=== PATIENT | male | born 1955 | race Caucasian/White ===

== ENCOUNTER 2016-10-22 13:32 | Emergency (ER) | payer MEDICARE ==
[2016-10-22] MEDS ORDERED: Tuberculin 5 TU/0.1 mL UD ID ONE (13:45)
[2016-10-22 13:58] VITALS: BP 84/56
--- NOTE | 2016-10-22 14:23 | ED Physician Chart ---
Chief Complaint/HPI - Patient Information Date Seen:: 10/22/16 Time Seen:: 14:00 Chief Complaint:: CHF History of Present Illness:: THIS IS A CHRONICALLY CHF 60 YO HYPERTENSIVE DIABETIC CARDIAC OBESE MALE WITH CONCERN ABOUT THE RETENTION OF FLUID IN HIS LEGS AND SCROTUM. HE STATES THE LEGS ARE SO SWOLLEN THEY ARE TIGHT AND RED. HE CURRENTLY DENIES CHEST PAIN. Allergies:: Allergies Allergy/AdvReac Type Severity Reaction Status Date / Time No Known Allergies Allergy Verified 10/22/16 13:53 Vitals:: Vital Signs - 8 hr 10/22/16 10/22/16 13:57 13:59 Temp 97.0 F HR 68 RR 16 BP 84/56 84/56 O2 Sat % 95 Historian:: Patient, Medical Records Review:: Nurse's Note Reviewed Review of Systems - Review of Systems General/Constitutional: No fever, No chills, No weight loss, No weakness, No diaphoresis, No edema, No loss of appetite Skin: No skin lesions, No rash, No bruising Head: No headache, No light-headedness Eyes: No loss of vision, No pain, No diplopia ENT: No earache, No nasal drainage, No sore throat, No tinnitus Neck: No neck pain, No swelling, No thyromegaly, No stiffness, No mass noted Cardio Vascular: No chest pain, No palpitations, No PND, orthopnea (3 PILLOW), edema Pulmonary: SOB, No cough, No sputum, No wheezing GI: No nausea, No vomiting, No diarrhea, No pain, No melena, No hematochezia, No constipation, No hematemesis, Other (DISTENTED WITH FLUID) G/U: No dysuria, No frequency, No hematuria Musculoskeletal: No bone or joint pain, No back pain, No muscle pain, Other (4+ PITTING EDEMA WITH CELLULITIS AND AN ULCER ON THE RIGHT LEG) Endocrine: No polyuria, No polydipsia Psychiatric: No prior psych history, No depression, No anxiety, No suicidal ideation Hematopoietic: No bruising, No lymphadenopathy Allergic/Immuno: No urticaria, No angioedema Neurological: No syncope, No focal symptoms, No weakness, No paresthesia, No headache, No seizure, No dizziness, No confusion, No vertigo Past Medical History - Past Medical History Obtainable: Yes Past Medical History: HTN, DM, CAD, CHF Family Medical History - Family Member Mother History Unknown: Yes Ethnicity: Physical Exam - Physical Examination General/Constitutional: Awake, Well-developed, well-nourished, Alert, No distress, GCS 15, Non-toxic appearing, Ambulatory Head: Atraumatic Eyes: Lids, conjuctiva normal, PERRL, EOMI Skin: Nl inspection, No rash, No skin lesions, No ecchymosis, Well hydrated, No lymphadenopathy ENMT: External ears, nose nl, Nasal exam nl, Lips, teeth, gums nl Neck: Nontender, Full ROM w/o pain, No JVD, No nuchal rigidity, No bruit, No mass, No stridor Respiratory: Nl effort/Exclusion Other Respiratory comments:: BILATERAL RALES HEARD UP TO THE MID-LUNGS. Cardio Vascular: RRR, No murmur, gallop, rubs, NL S1 S2 GI: No tenderness/rebounding/guarding, No organomegaly, No hernia, Normal BS's, No mass/bruits, No McBurney tenderness Other GI comments:: ABDOMEN IS DISTENDED WITH FLUIDS : No CVA tenderness Other comments:: THE PATIENT HAS BILATERAL SCROTAL EDEMA Extremities: No tenderness or effusion, Full ROM, normal strength in all extremities, No edema, Normal digits & nails Neuro/Psych: Alert/oriented, DTR's symmetric, Normal sensory exam, Normal motor strength, Judgement/insight normal, Mood normal, Normal gait, No focal deficits Misc: normal gait, Normal back, No paraspinal tenderness Labs/Radiology/EKG Results - EKG Interpretations EKG Time:: 14:16 Rhythm: VENTRICULAR PACER [place]: LEFT Rate: 70 ED Septic Shock - . Is Septic Shock (SBP<90, OR Lactate>4 mmol\L) present?: No - <6hrs of presentation: Vital Signs: Vital Signs - 8 hr 10/22/16 10/22/16 13:57 13:59 Temp 97.0 F HR 68 RR 16 BP 84/56 84/56 O2 Sat % 95 Reassessment (Disposition) - Reassessment Reassessment Condition:: Unchanged, Improved - Patient Disposition Discharge/Transfer:: Acute Care w/in this hosp
[2016-10-22 14:43] LABS: HEMATOCRIT 43.6 % (39.0-49.0); HEMOGLOBIN 14.5 gm/dL (13.2-17.3); MEAN CELL VOLUME 89.5 fl (80-99); MEAN CORPUSCULAR HEMOGLOBIN 29.7 pg (26.0-30.0); MEAN CORPUSCULAR HGB CONC 33.2 pg (28.0-36.0); MEAN PLATELET VOLUME 10.5 fl; PLATELET COUNT 165 Th/cmm (150-400); RED BLOOD COUNT 4.87 Mil/cmm (4.30-5.70); WHITE BLOOD COUNT 7.6 Th/cmm (4.8-10.8)
[2016-10-22 14:58] LABS: ALB/GLOB RATIO 1.1 (1.0-1.8); ALKALINE PHOSPHATASE 116 U/L (34-104); ANION GAP 12.8 (7.0-16.0); BILIRUBIN,TOTAL 2.9 mg/dL (0.3-1.0); BUN - UREA NITROGEN 47 mg/dL (7-25); BUN/CREATININE RATIO 33.6; CALCIUM SERUM 9.5 mg/dL (8.6-10.3); CARBON DIOXIDE 22.8 mEq/L (21.0-31.0); CHLORIDE 100 mEq/L (98-107); CREATININE - SERUM 1.4 mg/dL (0.7-1.3); GLUCOSE 155 mg/dL (70-105); POTASSIUM SERUM 4.6 mEq/L (3.5-5.1); SGOT 20 U/L (13-39); SGPT/ALT 14 U/L (7-52); SODIUM SERUM 131 mEq/L (136-145)
[2016-10-22 14:59] LABS: CHOLESTEROL 76 mg/dL (<200); TRIGLYCERIDES 67 mg/dL (<150)
--- NOTE | 2016-10-22 15:10 | Diagnostic Imaging Report ---
CHEST X-RAY: AP view INDICATION: CHF COMPARISON: None FINDINGS: Left chest wall AICD apparatus is seen with leads in the region of the right atrium, right ventricle, and epicardial leads. No focal consolidation, pleural effusions, or evidence of jacques CHF. Cardiomegaly is noted. Degenerative changes of the spine and shoulders are noted. IMPRESSION: Left chest wall ICD apparatus noted. No focal consolidation or evidence of jacques CHF Cardiomegaly.
[2016-10-22 15:48] LABS: EOSINOPHIL 2 % (0-5); NEUTROPHILS 73 % (40-80); TOTAL CELLS COUNTED 100
[2016-10-22 15:51] LABS: PLATELET ESTIMATE ADEQUATE (NORMAL)
[2016-10-22 16:12] LABS: URINE COLOR YELLOW
[2016-10-22 16:13] LABS: URINE BACTERIA FEW /hpf (NONE SEEN); URINE BILIRUBIN NEGATIVE (NEGATIVE); URINE BLOOD NEGATIVE (NEGATIVE); URINE EPITHELIAL CELLS FEW /lpf (FEW); URINE GLUCOSE (UA) NEGATIVE (NEGATIVE); URINE HYALINE CAST 0-2 /lpf (0-2); URINE KETONE NEGATIVE (NEGATIVE); URINE PROTEIN 30 mg/dL (NEGATIVE); URINE RBC NONE SEEN /hpf (0-5); URINE UROBILINOGEN 0.2 E.U./dL (0.2 - 1.0)
[2016-10-22 16:23] LABS: INR 1.36 (0.5-1.4); PROTHROMBIN TIME (TEST) 14.4 SECONDS (9.5-11.5)
== END 2016-10-23 00:30 | disposition short-term general hospital (02) ==
LOC: ER 13:32
DX: I11.0 Hypertensive heart disease with heart failure (principal); E11.9 Type 2 diabetes mellitus without complications; I25.10 Atherosclerotic heart disease of native coronary artery without angina pectoris
CPT/HCPCS: 36415-UA; 71010-TC; 80053-TC; 80061-TC; 81001-TC; 82948-90; 83880-TC; 84443-TC; 84484-TC; 85007-TC; 85027-TC; 85610-TC; 85730-TC; 87070-90; 87075-90; 87205-90; 93005